=== PATIENT | female | born 1975 | race Caucasian/White ===

== ENCOUNTER 2016-08-11 15:25 | Emergency (ER) | payer OTHER | END 2016-08-11 17:27 | disposition home or self-care (01) | LOC: ER 15:25 | DX: I87.2 Venous insufficiency (chronic) (peripheral) (principal); R60.0 Localized edema; M79.604 Pain in right leg; M25.571 Pain in right ankle and joints of right foot; I10 Essential (primary) hypertension; Z90.710 Acquired absence of both cervix and uterus; Z79.899 Other long term (current) drug therapy; Z88.0 Allergy status to penicillin | CPT/HCPCS: 93971; 99283; 99283-25 ==